=== PATIENT | female | born 1950 | race Caucasian/White ===

== ENCOUNTER 2016-10-08 14:12 | Emergency (ER) | payer OTHER ==
[~2016-10-08] VITALS: Ht 167.6 cm; Wt 98.6 kg
[~2016-10-08 14:12] MED LIST: AMLO2.5T PO; ASPI325T PO; ATAC16TA PO; CALCTAB80 PO; ENOX40P SQ; HYDR-3129 PO; LEVO75TA3 PO; ROSU10 PO; VITA100020 PO; VITA20002 PO; Z.0.COMMODE-3:1; Z.0.WALKERFRONT; ZOLO100T PO
[2016-10-08 14:17] VITALS: BP 150/75; PULSE 68; RESP 16; TEMP 98.3; O2SAT 94
[2016-10-08] MEDS ORDERED: NORC5TAB PO (14:34)
[2016-10-08] MEDS ORDERED: PRED10PA2 PO (14:34)
[2016-10-08] MEDS ORDERED: ZITHTAB PO (14:34)
--- NOTE | 2016-10-08 14:34 | PD ---
HPI . Cough and left ear pain Chief Complaint: ENT Complaint Time Seen by Provider: 14:21 Travel History International Travel<30 days: No Contact w/Intl Traveler<30days: No Traveled to known affect area: No History of Present Illness HPI Patient presents with cough and congestion since September 25. She treated it initially with Aleve cold and sinus. She wasn't getting much relief with that so she changed Mucinex. She states that the Mucinex caused her to have an upset stomach. She has now developed pain and pressure in her left ear. She has not been running a fever. She states that her secretions have been clear. She reports cough is worse at nighttime when she lays down. She states that the character of the cough has remained the same for the last couple of weeks. PFSH Past Medical History Arthritis: Yes Asthma: No Autoimmune Disease: No Depression: Yes Cancer: No Cardiovascular Problems: Yes (IRREG. RHYTHM) High Cholesterol: Yes Chest Pain: No Congestive Heart Failure: No COPD: No Cerebrovascular Accident: No Diabetes: No Diminished Hearing: No Endocrine: Yes GERD: No Genitourinary: No Hepatitis: No Hiatal Hernia: No Hypertension: Yes Immune Disorder: No Kidney Stones: No Musculoskeletal: Yes (ARTHRITIS) Neurologic: No Psychiatric: Yes (DEPRESSION) Reproductive: No Respiratory: No Migraines: No Renal Failure: No Seizures: No Sickle Cell Disease: No Thyroid Disease: Yes Triglycerides - High: Yes Ulcer: No Menopausal: Yes Past Surgical History Abdominal Surgery: No AICD: No Cardiac Surgery: No Ear Surgery: No Endocrine Surgery: No Eye Surgery: No Genitourinary Surgery: No Gynecologic Surgery: Yes (HYSTERECTOMY) Hysterectomy: Yes Joint Replacement: Yes (RIGHT HIP) Oral Surgery: No Pacemaker: No Thoracic Surgery: No Other Surgery: Yes (BLADDER SLING) Social History Alcohol Use: No Tobacco Use: Yes (RARELY) Substance Use: No Allergies-Medications (Allergen,Severity, Reaction): Coded Allergies: No Known Allergies (Unverified , 10/08/16) Reported Meds & Prescriptions Reported Meds & Active Scripts Active [place] 10/325 (Hydrocodone-Acetaminophen 10/325) Acetaminophen 325/10 Hydrocodone Tab 1-2 Tab PO Q4H PRN Aspirin 325 Mg Tab (Aspirin) 325 Mg Tab 325 Mg PO DAILY Start Aspirin after Lovenox is completed. Lovenox (Enoxaparin Sodium) 40 Mg/0.4 Ml Inj 40 Mg SQ DAILY UNGRADUATED PREFILLED SYRINGE Start Aspirin after Lovenox is completed. Walker Front Wheel (Walkerfront) Device 1 Unit Commode-3:1 Device 1 Unit Reported Vitamin D-3 (Cholecalciferol) 2 000 Tab 2,000 Unit PO DAILY Calcium 1000 + D (Calcium Carbonate/Cholecalciferol) Tab 1 Tab PO Vitamin B-12 (Cyanocobalamin) 1,000 Mcg Tab 1 Tab PO DAILY Amlodipine Besylate 2.5 mg (Amlodipine Besylate) 2.5 Mg Tab 1 Tab PO BID Levothyroxine 75 mcg (Levothyroxine Sodium) 75 Mcg Tab 1 Tab PO DAILY Zoloft (Sertraline Hcl) 100 Mg Tab 100 Mg PO DAILY Atacand (Candesartan Cilexetil) 16 Mg Tab 8 Mg PO BID Crestor (Rosuvastatin Calcium) 10 Mg Tab 10 Mg PO DAILY Review of Systems Except as stated in HPI: all other systems reviewed are Neg General / Constitutional: No: Fever, Chills HENT: Positive: Rhinorrhea, Congestion Respiratory: Positive: Cough Gastrointestinal: No: Nausea, Vomiting Physical Exam Narrative GENERAL: Healthy-appearing woman in no acute distress. SKIN: Warm and dry. HEAD: Atraumatic. Normocephalic. EYES: Pupils equal and round. ENT: No nasal bleeding or discharge. Mucous membranes pink and moist. She does have some injection of her left tympanic membrane. NECK: Trachea midline. Neck is supple. CARDIOVASCULAR: Regular rate and rhythm. Heart sounds are normal. RESPIRATORY: No accessory muscle use. Lungs are clear with good air movement throughout but she does have a prolonged expiratory phase and an asthmatic sounding cough. GASTROINTESTINAL: Abdomen soft, non-tender, nondistended. MUSCULOSKELETAL: No obvious deformities. No edema. NEUROLOGICAL: Awake and alert. No obvious cranial nerve deficits. Motor grossly within normal limits. Normal speech. PSYCHIATRIC: Appropriate mood and affect; insight and judgment normal. Data Data Last Documented VS Vital Signs Date Time Temp Pulse Resp B/P Pulse Ox O2 Delivery O2 Flow Rate FiO2 3 14:17 98.3 68 16 150/75 94 MDM Medical Decision Making Medical Screen Exam Complete: Yes Emergency Medical Condition: Yes Differential Diagnosis Differential diagnosis includes but is not limited to viral respiratory illness , bronchitis, pneumonia, allergies, CHF, asthma/COPD. Narrative Course Patient presents with cough and left ear pain. She sounds like bronchitis on exam. She has early left otitis media. Diagnosis Primary Impression: Bronchitis Additional Impression: Left otitis media Qualified Code: H66.002 - Acute suppurative otitis media of left ear without spontaneous rupture of tympanic membrane, recurrence not specified Patient Instructions: Acute Bronchitis (DC), General Instructions, Otitis Media (DC) Med/Other Pt SpecificInfo: Prescription(s) given Scripts Hydrocodone-Acetaminophen ([place]eller)5-325 mg Tab1 Tab PO Q4H PRN (PAIN) #12 TAB Ref 0 Prov:Viktoria Huggins MD 10/08/16 Azithromycin (Zithromax Z-Luis Daniel)250 Mg [id number] Mg PO DIRECTED #1 DSPK Ref 0 500 MG (2 tabs) day 1, then 1 tab days 2-5. Prov:Viktoria Huggins MD 10/08/16 Prednisone (48) 10 mg tab Dose Pack 10 Mg [id number] Mg PO DIRECTED #1 DSPK Ref 0 Prov:Viktoria Huggins MD 10/08/16 Disposition: 01 DISCHARGE HOME Condition: Stable Viktoria Huggins MD Oct 08, 2016 14:34
[2016-10-08] MEDS ORDERED: ROSU10 PO (14:36)
[2016-10-08] MEDS ORDERED: CALCCHW9 CHEW (14:36)
[2016-10-08] MEDS ORDERED: AMLO2.5T PO (14:36)
[2016-10-08] MEDS ORDERED: LEVO75TA3 PO (14:36)
[2016-10-08] MEDS ORDERED: SERT-129 PO (14:36)
[2016-10-08] MEDS ORDERED: VITA100064 PO (14:36)
[2016-10-08] MEDS ORDERED: B12-1CHW CHEW (14:36)
[2016-10-08] MEDS ORDERED: ATAC8TAB PO (14:36)
== END 2016-10-08 14:48 | disposition home or self-care (01) ==
LOC: PHED 14:12
DX: J40 Bronchitis, not specified as acute or chronic (principal); H66.92 Otitis media, unspecified, left ear; E78.00 Pure hypercholesterolemia, unspecified; I10 Essential (primary) hypertension
CPT/HCPCS: 99283